=== PATIENT | female | born 1950 | race Caucasian/White ===

== ENCOUNTER 2023-09-29 22:49 | Emergency (ER) | payer OTHER ==
[2023-09-29 23:30] VITALS: RESP 16; BMI 22.8
[2023-09-30] MEDS ORDERED: ACETAMINOPHEN 500 MG TABLET (FP) ONE (00:02)
[2023-09-30] MEDS: ACETAMINOPHEN 500 MG TABLET (FP) PO ONE (00:04)
[2023-09-30 00:42] VITALS: BP 176/95; PULSE 80; TEMP 97.8
[2023-09-30] MEDS ORDERED: AMOX TR/POT CLAV 500MG/125MG TABLETS (FP) ONE (01:07)
[2023-09-30] MEDS: AMOX TR/POT CLAV 500MG/125MG TABLETS (FP) PO ONE (01:08)
== END 2023-09-30 01:14 | disposition home or self-care (01) ==
LOC: FER 22:49
DX: S06.0X0A Concussion without loss of consciousness, initial encounter (principal); S02.32XA Fracture of orbital floor, left side, initial encounter for closed fracture; S02.40DA Maxillary fracture, left side, initial encounter for closed fracture; W01.118A Fall on same level from slipping, tripping and stumbling with subsequent striking against other sharp object, initial encounter
CPT/HCPCS: 70450-TC; 70486-TC; 73030-TC-LT-FY; 99284-25